=== PATIENT | male | born 1970 | race Caucasian/White ===

== ENCOUNTER 2018-03-15 04:45 | Emergency (ER) | payer MEDICAID ==
[~2018-03-15] VITALS: Ht 175.3 cm; Wt 74.3 kg
[2018-03-15 04:48] VITALS: BP 126/56
--- NOTE | 2018-03-15 05:15 | NUR ---
DR. HICKEY IN TO EVAL PT. AND DISCUSS POC.
[2018-03-15] MEDS ORDERED: MAGNESIUM CITRATE 300ML ORAL SOL PO ONE (05:30)
--- NOTE | 2018-03-15 05:33 | NUR ---
PT. NO LONGER IN ROOM; UNABLE TO LOCATE PT. IN DEPARTMENT. DR. HICKEY AWARE.
--- NOTE | 2018-03-15 05:46 | NUR ---
STILL UNABLE TO LOCATE PT IN ED. THIS RN CHECKED ALL BATHROOMS IN DEPARMENT AND ALL BATHROOMS NO PT.'S FOUND IN ANY OF THE BATHROOMS.
== END 2018-03-15 05:49 | disposition left against medical advice (07) ==
LOC: ED 05:40
DX: R10.84 Generalized abdominal pain (principal)
CPT/HCPCS: 99282